=== PATIENT | male | born 1950 | race Caucasian/White ===

== ENCOUNTER 2016-06-09 08:04 | Day surgery (SDC) | payer OTHER ==
[~2016-06-09] VITALS: Ht 172.7 cm; Wt 91.0 kg
[~2016-06-09 08:04] MED LIST: DAILY VALUE1 EACH PO
[2016-06-09 09:03] VITALS: BP 152/79
[2016-06-09] MEDS ORDERED: PERCOCET 5/31 TABLET PO (12:16)
[2016-06-09 13:50] VITALS: BP 154/73
[2016-06-09 14:58] VITALS: BP 135/77
[2016-06-09 16:26] VITALS: BP 174/88
== END 2016-06-09 16:26 | disposition home or self-care (01) ==
LOC: SDC 08:04
PROC: 0YQ60ZZ Repair Left Inguinal Region, Open Approach (ICD-10-PCS; principal; 2016-06-09)
DX: K40.90 Unilateral inguinal hernia, without obstruction or gangrene, not specified as recurrent (principal); I10 Essential (primary) hypertension
CPT/HCPCS: C1781; J0330; J0690; J1100; J1170; J2250; J2405; J2710; J3010

== ENCOUNTER → 2017-10-20 | Outpatient (CLI) | payer BC ==
[~2017-10-20] MED LIST changes: +PERCOCET 5/31 TABLET PO
== END | disposition home or self-care (01) ==
LOC: CDC 09:01
DX: Z01.810 Encounter for preprocedural cardiovascular examination (principal)
CPT/HCPCS: 93000